=== PATIENT | male | born 1965 | race Caucasian/White ===

== ENCOUNTER 2017-06-24 06:07 | Day surgery (SDC) | payer OTHER ==
[~2017-06-24] VITALS: Ht 177.8 cm; Wt 102.4 kg
[2017-06-24] MEDS ORDERED: LOSARTAN-HCTZ1 EACH PO (06:55)
[2017-06-24] MEDS ORDERED: DILT60 PO (06:55)
[2017-06-24] MEDS ORDERED: ASPI325 PO (06:56)
[2017-06-24] MEDS ORDERED: LIVALO4 MG PO (06:57)
[2017-06-24] MEDS ORDERED: LORA.5 (06:58)
[2017-06-24] MEDS ORDERED: CITA20 PO (06:58)
[2017-06-24] MEDS ORDERED: Fenofibrate134 MG PO (06:59)
== END 2017-06-24 08:48 | disposition home or self-care (01) ==
LOC: ORSCSDS 06:07
PROVIDERS: Urology
PROC: 0VB60ZZ Excision of Right Tunica Vaginalis, Open Approach (ICD-10-PCS; principal; 2017-06-24 07:30)
DX: N43.3 Hydrocele, unspecified (principal); I10 Essential (primary) hypertension; E78.00 Pure hypercholesterolemia, unspecified; N40.0 Benign prostatic hyperplasia without lower urinary tract symptoms; F32.9 Major depressive disorder, single episode, unspecified; Z79.82 Long term (current) use of aspirin; Z79.899 Other long term (current) drug therapy
CPT/HCPCS: J0690; J1100; J1885; J2250; J2405; J3010; J7120

== ENCOUNTER 2018-08-29 08:49 | Day surgery (SDC) | payer OTHER ==
[~2018-08-29] VITALS: Ht 175.3 cm; Wt 101.3 kg
[~2018-08-29 08:49] MED LIST: ASPI325 PO; CENTRUM COMPLE1 EACH PO; CITA20 PO; Citalopram HBr20 MG PO; DILT60 PO; Diltiazem ER60 MG PO; FENO67 PO; FISH OIL 1,0001 EAC1 PO; Fenofibrate134 MG PO; LIVALO4 MG PO; LORA.5; LOSARTAN-HCTZ1 EAC2 PO; LOSARTAN-HCTZ1 EACH PO
== END 2018-08-29 10:35 | disposition home or self-care (01) ==
LOC: ORSCSDS 08:49
PROVIDERS: Internal Medicine Gastroenterology
PROC: 0DBK8ZX Excision of Ascending Colon, Via Natural or Artificial Opening Endoscopic, Diagnostic (ICD-10-PCS; principal; 2018-08-29 10:15)
PROC: 0DBH8ZX Excision of Cecum, Via Natural or Artificial Opening Endoscopic, Diagnostic (ICD-10-PCS; principal; 2018-08-29 10:15)
DX: Z12.11 Encounter for screening for malignant neoplasm of colon (principal); D12.0 Benign neoplasm of cecum; D12.2 Benign neoplasm of ascending colon; K64.8 Other hemorrhoids; I10 Essential (primary) hypertension; E78.5 Hyperlipidemia, unspecified; F32.9 Major depressive disorder, single episode, unspecified; E66.9 Obesity, unspecified; Z68.33 Body mass index [BMI] 33.0-33.9, adult; Z79.82 Long term (current) use of aspirin; Z79.899 Other long term (current) drug therapy
CPT/HCPCS: 88305; J7120

== ENCOUNTER → 2019-01-24 | Outpatient (CLI) | payer OTHER | END | disposition home or self-care (01) | LOC: LAB 13:52 → LAB SHORT 13:52 | DX: L08.9 Local infection of the skin and subcutaneous tissue, unspecified (principal) | CPT/HCPCS: 87070; 87077; 87147; 87186; 87205 ==

== ENCOUNTER 2020-04-26 05:54 | Day surgery (SDC) | payer OTHER ==
[~2020-04-26] VITALS: Ht 177.8 cm; Wt 107.6 kg
--- NOTE | 2020-04-26 10:09 | NUR ---
RECIEVED PATIENT AND REPORT FROM MARIUM SANDOVAL AND KANDICE GROVES ANNESTHIOLOGIST JUDI HIDALGO
--- NOTE | 2020-04-26 10:35 | NUR ---
INTO STEP WITH RN VSS HAS ICE CHIPS AND VSS DRESSING CDI
--- NOTE | 2020-04-26 11:27 | NUR ---
Discharge instructions reviewed with patient. Patient verbalizes understanding. Copy given to patient to take home. Patient States Post-Procedure ride home has been arranged. Discharged via wheelchair to private car for ride home.
== END 2020-04-26 23:03 | disposition home or self-care (01) ==
LOC: ORSCMMR 05:54 → ORD 07:30 → ORSCMMR 23:03
PROVIDERS: Surgery
PROC: 0YU64JZ Supplement Left Inguinal Region with Synthetic Substitute, Percutaneous Endoscopic Approach (ICD-10-PCS; principal; 2020-04-26 07:30)
PROC: 0YU84JZ Supplement Left Femoral Region with Synthetic Substitute, Percutaneous Endoscopic Approach (ICD-10-PCS; principal; 2020-04-26 07:30)
PROC: 0WQF4ZZ Repair Abdominal Wall, Percutaneous Endoscopic Approach (ICD-10-PCS; principal; 2020-04-26 07:30)
PROC: 8E0W4CZ Robotic Assisted Procedure of Trunk Region, Percutaneous Endoscopic Approach (ICD-10-PCS; principal; 2020-04-26 07:30)
DX: K41.90 Unilateral femoral hernia, without obstruction or gangrene, not specified as recurrent (principal); K40.90 Unilateral inguinal hernia, without obstruction or gangrene, not specified as recurrent; K42.9 Umbilical hernia without obstruction or gangrene; I10 Essential (primary) hypertension; F17.220 Nicotine dependence, chewing tobacco, uncomplicated; Z79.899 Other long term (current) drug therapy; Z79.82 Long term (current) use of aspirin
CPT/HCPCS: 49650; 49659; 49652; S2900; A9270-GY; C1781; J0690; J1100; J2250; J2405; J2704; J3010; J7120

== ENCOUNTER → 2021-07-18 | Outpatient (CLI) | payer OTHER ==
[2021-07-18 09:56] LABS: BASOPHILS ABSOLUTE AUTO 0.02 K/mm3 (0.00-0.23); BASOPHILS PERCENT AUTO 0 % (0-2); EOSINOPHILS ABSOLUTE AUTO 0.18 K/mm3 (0.00-0.68); EOSINOPHILS PERCENT AUTO 3 % (0-6); Hematocrit 42.2 % (37.0-53.0); Hemoglobin 15.2 g/dL (13.5-17.5); IMMATURE GRAN ABSOLUTE AUTO 0.03 K/mm3 (0.00-0.10); IMMATURE GRAN PERCENT AUTO 1 % (0-1); LYMPHOCYTES ABSOLUTE AUTO 1.88 K/mm3 (0.84-5.20); LYMPHOCYTES PERCENT AUTO 36 % (21-46); MONOCYTES ABSOLUTE AUTO 0.42 K/mm3 (0.16-1.47); MONOCYTES PERCENT AUTO 8 % (4-13); Mean Corpuscular HGB 31.2 pg (26.0-34.0); Mean Corpuscular Volume 87 fL (80-100); Mean Platelet Volume 8.6 fL (9.1-12.4); NEUTROPHILS ABSOLUTE AUTO 2.72 K/mm3 (1.96-9.15); NEUTROPHILS PERCENT AUTO 52 % (41-73); Platelet Count 201 K/mm3 (150-400); RDW Coefficient Variation 12.6 % (11.7-14.2); RDW Standard Deviation 39.8 fL (35.1-46.3); Red Blood Cell Count 4.87 M/mm3 (4.30-5.90); White Blood Cell Count 5.25 K/mm3 (4.00-11.30)
[2021-07-18 10:36] LABS: Alanine Aminotransfer (ALT/SGP 43 U/L (12-78); Albumin/Globulin Ratio 1.1 (0.8-1.8); Alk Phos 90 U/L (50-136); Anion Gap 8 mmol/L (6-16); Aspartate Aminotrans (AST/SGOT 19 U/L (12-37); Bilirubin, Total 0.4 mg/dL (0.1-1.0); Blood Urea Nitrogen 12 mg/dL (8-24); Bun/Creatinine Ratio 17.1 (12.0-20.0); CO2, Blood 26 mmol/L (21-32); Calcium, Blood 9.2 mg/dL (8.5-10.1); Chloride, Blood 105 mmol/L (98-108); Globulin, Blood 3.5 g/dL (2.2-4.0); Glomerular Filtration Rate >60 (60-); Glucose, Blood 105 mg/dL (70-99); Potassium, Blood 3.9 mmol/L (3.5-5.5); Sodium, Blood 139 mmol/L (136-145); Total Protein, Blood 7.5 g/dL (6.4-8.2)
== END ==
LOC: LAB SHORT 09:52
PROVIDERS: Physician Assistant
DX: R07.9 Chest pain, unspecified (principal)
CPT/HCPCS: 80053; 84484; 85025

== ENCOUNTER 2023-08-04 11:18 | Day surgery (SDC) | payer OTHER ==
[~2023-08-04] VITALS: Ht 177.8 cm; Wt 100.9 kg
[~2023-08-04 11:18] MED LIST changes: +Aspir 8181 MG PO; +CENTRUM SILVER1 EAC2; +HYDCHL25 PO; +LORA.5 PO; +LOSARTAN POTAS100 M1 PO; +Lactated Ringer's 1,000 ML IV ONE; +PARO20 PO; +ROSU10TA PO
[2023-08-04] MEDS ORDERED: METF500 PO (12:10)
[2023-08-04] MEDS ORDERED: AMLO5 PO (12:11)
[2023-08-04] MEDS ORDERED: Lactated Ringer's 1,000 ML IV ONE (12:24)
[2023-08-04 13:42] VITALS: BP 125/85
== END 2023-08-04 13:44 | disposition home or self-care (01) ==
LOC: ORSCSDS 11:18
PROVIDERS: Internal Medicine Gastroenterology
PROC: 0DBH8ZX Excision of Cecum, Via Natural or Artificial Opening Endoscopic, Diagnostic (ICD-10-PCS; principal; 2023-08-04 12:45)
DX: Z12.11 Encounter for screening for malignant neoplasm of colon (principal); D12.0 Benign neoplasm of cecum; Z86.010 Personal history of colon polyps; I10 Essential (primary) hypertension; Z86.16 Personal history of COVID-19; E11.9 Type 2 diabetes mellitus without complications; F41.8 Other specified anxiety disorders; E78.00 Pure hypercholesterolemia, unspecified; G47.33 Obstructive sleep apnea (adult) (pediatric); Z79.84 Long term (current) use of oral hypoglycemic drugs; Z79.899 Other long term (current) drug therapy
CPT/HCPCS: 82947; 88305; J7120

== ENCOUNTER 2023-11-01 08:07 | Day surgery (SDC) | payer OTHER ==
[~2023-11-01] VITALS: Ht 175.3 cm; Wt 106.0 kg
[2023-11-01] VITALS (14 sets, daily range): BP systolic 98–127; BP diastolic 57–77
[~2023-11-01 08:07] MED LIST changes: +AMLO5 PO; +CINNAMON-CHROM1 EACH PO; +DILT60ER PO; -Lactated Ringer's 1,000 ML IV ONE; +METF500 PO; +VITAMIN D310 MC4 PO; +[UNRECOGNIZED DRUG - CODE] PO
[2023-11-01] MEDS ORDERED: Lactated Ringer's 1,000 ML IV SCH ×2 (08:45→10:40)
[2023-11-01] MEDS ORDERED: FentaNYL Citrate 50 MCG/ML 2 ML Injection ONE (08:45)
[2023-11-01] MEDS ORDERED: propofoL 40 ML IV ONE (08:45)
[2023-11-01] MEDS ORDERED: Chlorhexidine Mouth Care 15 ML UDC MT SCH (08:45)
[2023-11-01] MEDS ORDERED: OxyCODONE HCL 10 MG TABCR PO SCH (08:45)
[2023-11-01] MEDS ORDERED: Midazolam HCl 1MG / ML 2ML Vial IV PRN (08:45)
[2023-11-01] MEDS ORDERED: CeFAZolin Sodium 2,000 MG in NS 100 ML IV SCH ×2 (08:45→18:00)
[2023-11-01] MEDS ORDERED: Acetaminophen 500 MG Tab PO SCH ×2 (08:45→16:00)
[2023-11-01] MEDS ORDERED: Tranexamic Acid 100 ML IV SCH (08:45)
[2023-11-01] MEDS ORDERED: Lidocaine HCl 1% 5 ML SYR INJ ONE (08:45)
[2023-11-01] MEDS ORDERED: Ropivacaine 0.5% HCl/Pf 123.125 MG,EPINEPHrine HCL 0.25 MG,Ketorolac Tromethamine 15 MG... INFIL SCH (08:45)
[2023-11-01] MEDS ORDERED: CeFAZolin Sodium 2,000 MG VIAL ONE (09:16)
[2023-11-01] MEDS ORDERED: VANCOMYCIN HCL IV SCH (09:40)
[2023-11-01] MEDS ORDERED: Vancomycin HCL 1,000 MG in NS 100 ML IV ONE (09:45)
[2023-11-01] MEDS ORDERED: Promethazine HCl 25 MG Tab PO PRN (10:35)
[2023-11-01] MEDS ORDERED: Phenylephrine HCl 100 MCG/ML-NS 10MLSYR (1MG/10ML) ONE (10:37)
[2023-11-01] MEDS ORDERED: Ondansetron HCl 2 MG / ML 2ML Vial IV PRN (10:40)
[2023-11-01] MEDS ORDERED: OxyCODONE HCL 5 MG TAB PO PRN ×2 (10:40)
[2023-11-01] MEDS ORDERED: Metoclopramide HCl 5MG / ML 2ML Vial IV PRN (10:40)
[2023-11-01] MEDS ORDERED: Magnesium Hydroxide Conc 10 ML UDC PO PRN (10:40)
[2023-11-01] MEDS ORDERED: HYDROmorphone HCl/Pf 1MG SYR IV PRN (10:40)
[2023-11-01] MEDS ORDERED: ePHEDrine Sulfate 50 MG/ML 1ML Injection ONE (10:43)
[2023-11-01] MEDS ORDERED: DiphenhydrAMINE HCL 25 MG Cap PO PRN (10:45)
[2023-11-01] MEDS ORDERED: Bisacodyl 10 MG Supp PR PRN (10:45)
[2023-11-01] MEDS ORDERED: propofoL 60 ML IV ONE (10:55)
--- NOTE | 2023-11-01 11:02 | NUR ---
11/01/23 1102 Camilla Parisi SPINAL COMPLETED BY UPON ENTRY TO OR. PATIENT TOLERATED WELL. VANCO 1GM GIVEN START TIME 1006.
--- NOTE | 2023-11-01 13:00 | NUR ---
PT ARRIVED TO THE ROOM AT APPROXIMATELY 1250. AT TIME OF ARRIVAL PT DENIED PAIN. PT HAD SPINAL ANESTHESIA AND BLE ARE STILL NUMB AND PT UNABLE TO MOVE BLE. SPINAL ANESTHESIA SITE WNL. INCISION SITE TO LEFT KNEE WNL. FAMILY AT BEDSIDE FOR SUPPORT.
[2023-11-01] MEDS ORDERED: OXYC5 PO (16:42)
[2023-11-01] MEDS ORDERED: ACET500 PO (16:42)
[2023-11-01] MEDS ORDERED: Ketorolac Tromethamine 15mg Vial IV SCH (18:00)
--- NOTE | 2023-11-01 20:09 | NUR ---
SHIFT SUMMARY PT IS POD#0 FROM L TKA WITH DR. JAFFE. PT IS TOLERATING PO, PAIN MANAGED WITH PO PAIN MEDICATION, PT WORKED WITH THERAPY AND PT HAS VOIDED. BEDSIDE REPORT GIVEN TO KALEB SANDOVAL.
[2023-11-01] MEDS ORDERED: Docusate Sodium 100 MG Cap PO SCH (21:00)
[2023-11-01] MEDS ORDERED: MetFORMIN HCl 500 mg PO SCH (21:00)
[2023-11-02 04:07] VITALS: BP 132/72
--- NOTE | 2023-11-02 04:37 | NUR ---
SHIFT SUMMARY S/P L TKA. AQUACEL DRESSING REMAINS CDI WITH POLAR PACK IN PLACE. UP WITH SBA USING FWW/GB. 2 CARRIE/TYLENOL/TORADOL FOR PAIN MANAGEMENT. PLAN TO DISCHARGE TODAY AFTER CLEARING THERAPY. VSS. USES CALL LIGHT APPROPRIATELY.
[2023-11-02 04:43] LABS: BASOPHILS ABSOLUTE AUTO 0.03 K/mm3 (0.00-0.23); BASOPHILS PERCENT AUTO 0 % (0-2); EOSINOPHILS ABSOLUTE AUTO 0.26 K/mm3 (0.00-0.68); EOSINOPHILS PERCENT AUTO 3 % (0-6); Hematocrit 35.6 % (37.0-53.0); Hemoglobin 12.5 g/dL (13.5-17.5); IMMATURE GRAN ABSOLUTE AUTO 0.05 K/mm3 (0.00-0.10); IMMATURE GRAN PERCENT AUTO 1 % (0-1); LYMPHOCYTES ABSOLUTE AUTO 1.38 K/mm3 (0.84-5.20); LYMPHOCYTES PERCENT AUTO 15 % (21-46); MONOCYTES ABSOLUTE AUTO 0.73 K/mm3 (0.16-1.47); MONOCYTES PERCENT AUTO 8 % (4-13); Mean Corpuscular HGB 30.8 pg (26.0-34.0); Mean Corpuscular HGB Conc 35.1 g/dL (31.5-36.5); Mean Corpuscular Volume 88 fL (80-100); Mean Platelet Volume 8.8 fL (9.1-12.4); NEUTROPHILS PERCENT AUTO 74 % (41-73); Platelet Count 162 K/mm3 (150-400); RDW Coefficient Variation 13.2 % (11.7-14.2); RDW Standard Deviation 42.1 fL (35.1-46.3); Red Blood Cell Count 4.06 M/mm3 (4.30-5.90); White Blood Cell Count 9.55 K/mm3 (4.00-11.30)
[2023-11-02 04:57] LABS: Bun/Creatinine Ratio 15.6 (12.0-20.0); Calcium, Blood 8.2 mg/dL (8.5-10.1); Creatinine, Blood 0.64 mg/dL (0.60-1.20); Potassium, Blood 3.9 mmol/L (3.5-5.5)
[2023-11-02 07:17] VITALS: BP 121/75
[2023-11-02] MEDS ORDERED: PARoxetine HCl 20 MG Tab PO SCH (09:00)
[2023-11-02] MEDS ORDERED: VITAMIN D 50 MCG PO SCH (09:00)
[2023-11-02] MEDS ORDERED: HydroCHLOROthiazide 25 mg Tab PO SCH (09:00)
[2023-11-02] MEDS ORDERED: Ascorbic Acid 250 MG Chew PO SCH (09:00)
[2023-11-02] MEDS ORDERED: Aspirin 81 MG Chew PO SCH (09:00)
[2023-11-02] MEDS ORDERED: Losartan Potassium 50 MG Tab PO SCH (09:00)
[2023-11-02] MEDS ORDERED: AmLODIPine Besylate 5 MG Tab PO SCH (09:00)
[2023-11-02 10:26] VITALS: BP 127/81
--- NOTE | 2023-11-02 12:01 | NUR ---
DISCHARGE PT PROVIDED WITH WRITTEN AND VERBAL DISCHARGE INSTRUCTIONS, PT REPORTED UNDERSTANDING. PT MET ALL GOALS PRIOR TO DISCHARGE. CLEAN DRESSINGS PROVIDED. VSS BEFORE DISCHARGE. PT ASSISTED OUT IN W/C AT 1049.
== END 2023-11-02 10:50 | disposition home or self-care (01) ==
LOC: ORSCMMR 08:07 → ORD 10:45 → SURS 12:41 → ORSCMMR 11-02 10:50 → ORD 11-15 17:15
PROVIDERS: Orthopaedic Surgery
PROC: 8E0Y0CZ Robotic Assisted Procedure of Lower Extremity, Open Approach (ICD-10-PCS; principal; 2023-11-01 10:45)
PROC: 0SRD0JA Replacement of Left Knee Joint with Synthetic Substitute, Uncemented, Open Approach (ICD-10-PCS; principal; 2023-11-01 10:45)
DX: M17.12 Unilateral primary osteoarthritis, left knee (principal); E78.5 Hyperlipidemia, unspecified; I10 Essential (primary) hypertension; Z86.16 Personal history of COVID-19; F32.A Depression, unspecified; N40.0 Benign prostatic hyperplasia without lower urinary tract symptoms; F17.220 Nicotine dependence, chewing tobacco, uncomplicated; Z79.899 Other long term (current) drug therapy; Z79.84 Long term (current) use of oral hypoglycemic drugs; Z79.82 Long term (current) use of aspirin; Z68.33 Body mass index [BMI] 33.0-33.9, adult
CPT/HCPCS: 27447; 0055T; 36415; 73560-LT; 80048; 82947; 83735; 85025; 93005; 93010; 97110; 97116; 97162; A9270; C1713; C1776; J0171; J0690; J0735; J1885; J2250; J2371; J2704; J2795; J3010; J3370; J7120